=== PATIENT | male | born 1985 | race Caucasian/White ===

== ENCOUNTER 2017-02-12 18:33 | Emergency (ER) ==
--- NOTE | 2017-02-12 19:32 | PROVIDER DOCUMENTATION ---
HPI-EENT General - General Chief Complaint: Toothache Stated Complaint: TOOTHACHE Time Seen by Provider: 02/12/17 19:30 Source: patient Allergies/Adverse Reactions: Patient Allergies Allergy/AdvReac Type Severity Reaction Status Date / Time No Known Allergies Allergy Verified 02/12/17 18:53 Home Medications: Home Medication List Medication Instructions Recorded Confirmed Last Taken Type Amoxicillin 875 mg PO BID #20 tablet 02/12/17 Unknown Rx - History of Present Illness-EENT General Nature of Presenting Problem: 32 yo male presents to the emergency room with c/o infected wisdom tooth X 3 weeks. Reports taking OTC aspirin w/o relief. Reports has appointment with dentist next week. Denies fever, chills or facial swelling, EENT Location: reports: dental Quality of Pain: reports: aching Severity: reports: moderate Onset/Duration: reports: other (3 weeks) Timing: reports: still present Prearrival Treatment: Initiated over the counter meds Associated Symptoms: reports: tooth pain. denies: facial pain/swelling, fever - Throat/Dental Throat/Dental Problem Symptoms: reports: toothache. denies: jaw pain, swelling of jaw/face, trouble breathing Review of Systems - Adult - REVIEW OF SYSTEMS - ADULT Constitutional: denies: chills, fever Eyes: reports: no symptoms reported Ears, Nose, Mouth & Throat: reports: mouth/dental pain. denies: loose teeth Cardiovascular: reports: no symptoms reported Respiratory: reports: no symptoms reported Gastrointestinal: reports: no symptoms reported Genitourinary: reports: no symptoms reported Musculoskeletal: reports: no symptoms reported Integumentary: reports: no symptoms reported Neurological: reports: no symptoms reported Psychiatric: reports: no symptoms reported Endocrine: reports: no symptoms reported Hematologic/Lymphatic: reports: no symptoms reported Allergic/Immunologic: reports: no symptoms reported All Other Systems: Reviewed and Negative Past History - Adult - PAST MEDICAL HISTORY-ADULT Review of Records: reports: Nursing Assessment Review, Medications Reviewed - IMMUNIZATION STATUS Childhood Immunizations: See Nurse Assessment Flu Vaccine: See Nurse Assessment - SOCIAL HISTORY Smoking: cigarettes, less than 1 pack/day Provider spent 3-5 mins advising pt. on dangers of tobacco.: Discussed manners to quit use, and f/u contacts for add'l counseling. Physical Exam- EENT - Physical Exam EENT Initial Vital Signs Reviewed: Yes General Appearance: appears well, alert, no apparent distress Eye Exam: bilateral eye: PERRL, EOMI Ear Exam: bilateral ear: canal normal, TM normal Throat Exam: dental tenderness (dental decay noted left back wisdom tooth). negative: mandibular swelling, maxillary swelling Respiratory: lungs clear, normal breath sounds Cardiovascular: normal peripheral pulses, regular rate, rhythm Abdominal Exam: non tender, soft Extremity: normal range of motion, normal capillary refill Integumentary: normal color, normal turgor, warm/dry Progress - PLAN OF CARE/RESULTS Progress/Plan/Lab Results: Discussed care, diagnosis and need for follow-up, patient verbalized understanding Last Vital Signs Temp 97.3 F L 02/12/17 18:49 Pulse 97 H 02/12/17 18:49 Resp 18 02/12/17 18:49 BP 108/72 02/12/17 18:49 Pulse Ox 100 02/12/17 18:49 Allergies No Known Allergies Allergy (Verified 02/12/17 18:53) Vital Signs - 24 hr 02/12/17 18:49 Temperature 97.3 F L Pulse Rate 97 H Respiratory 18 Rate Blood Pressure 108/72 O2 Sat by Pulse 100 Oximetry Departure - Departure Time of Disposition Order: 19:30 DIAGNOSIS: Toothache, Dental decay Disposition: HOME 01 Certified Medical Emergency: Emergent Condition: Stable Additional Instructions: ED Follow Up Instructions: You have been treated by a care provider in the Emergency Department. These instructions are being provided to you so you can have an understanding of how to care for yourself upon discharge. Upon discharge from the Emergency Department, you are responsible for making arrangements for follow-up care by a physician of your choice. Take all prescribed medications as directed. Return to the Emergency Department immediately for any new or worsening symptoms. You may call the Physician Referral phone number at [phone] to obtain a list of Physicians who are taking new patients. Prescriptions: Amoxicillin 875 mg PO BID #20 tablet Referrals: None,PCP [Primary Care Provider] - Attestation - Physician/ NICOLE Attestation Patient care was provided by Advanced Practice Provider:: Yes Advanced Practice Provider:: Destiny Pa Advanced Practice Provider documentation review:: The Mid-level provider documentation, treatment plan and medical decision making was reviewed by the physician who agrees with all treatment and medical decision making by the MLP.
[2017-02-12] MEDS ORDERED: MOTRIN PO ONE (19:33)
[2017-02-12 20:22] VITALS: BP 115/81
== END 2017-02-12 20:22 | disposition home or self-care (01) ==
LOC: P.ED 18:33
DX: K02.9 Dental caries, unspecified (principal); K08.89 Other specified disorders of teeth and supporting structures; F17.210 Nicotine dependence, cigarettes, uncomplicated; Z71.6 Tobacco abuse counseling
CPT/HCPCS: 99282